=== PATIENT | male | born 1970 | race Asian ===

== ENCOUNTER 2019-01-23 05:01 | Emergency (ER) | payer OTHER ==
[~2019-01-23] VITALS: Ht 188 cm; Wt 106.0 kg
[~2019-01-23 05:01] MED LIST: CEPH-443 PO; IBUP-1542 PO; SULF1TAB31 PO
[2019-01-23 05:04] VITALS: BP 162/90; PULSE 95; RESP 19; Ht 188 cm; Wt 106.0 kg
== END 2019-01-23 05:45 | disposition home or self-care (01) ==
LOC: FTE 05:01
DX: Z48.00 Encounter for change or removal of nonsurgical wound dressing (principal); I10 Essential (primary) hypertension
CPT/HCPCS: 99283